=== PATIENT | female | born 1995 | race Caucasian/White ===

== ENCOUNTER 2023-02-04 17:33 | Emergency (ER) | payer MEDICAID ==
[~2023-02-04] VITALS: Ht 167.6 cm; Wt 59.0 kg
[2023-02-04 17:35] VITALS: BP 106/62; PULSE 107; RESP 19; O2SAT 100
== END 2023-02-04 20:24 | disposition left against medical advice (07) ==
LOC: ER 17:33
DX: G40.909 Epilepsy, unspecified, not intractable, without status epilepticus (principal); F32.A Depression, unspecified; F41.9 Anxiety disorder, unspecified
CPT/HCPCS: 99283